=== PATIENT | female | born 1990 | race Caucasian/White ===

== ENCOUNTER 2020-10-17 00:14 | Inpatient (IN) | payer OTHER, SELFPAY ==
[2020-10-17 00:13] VITALS: BP 128/95; PULSE 76; RESP 17; TEMP 37.2; O2SAT 98
[2020-10-17 00:17] VITALS: BMI 23.3
[2020-10-17 06:00] VITALS: BP 117/80; PULSE 73; RESP 19; TEMP 36.6; O2SAT 96
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
[2020-10-17] MEDS: venlafaxine 75 mg Tablet 37.5 MG PO (10:26)
[2020-10-17] MEDS: nicotine 21 mg Patch 1 PATCH TRANSDERMA (10:26)
[2020-10-17 14:00] VITALS: BP 121/83; PULSE 101; RESP 17; TEMP 36.9; O2SAT 98
[2020-10-17 22:00] VITALS: RESP 17
--- NOTE | 2020-10-18 00:59 | PC.NURSE ---
pm ASSESSMENT PT IS DEPRESSED THIS EVENING, SHE IS SELF-ISOLATING, DENIES PAIN, DENIES AVH, DENIES SI/HI, COOPERATIVE WITH STAFF BUT STAYS TO HERSELF.
[2020-10-18 06:00] VITALS: BP 128/93; PULSE 85; RESP 18; TEMP 36.9; O2SAT 96
[2020-10-18] MEDS: venlafaxine 75 mg Tablet PO (08:40)
[2020-10-18] MEDS: nicotine 2 mg Gum BUCCAL ×2 (08:42→14:01)
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
[2020-10-18 14:00] VITALS: BP 123/85; PULSE 86; RESP 18; TEMP 36.8; O2SAT 96
[2020-10-18 20:00] VITALS: BP 125/85; PULSE 88; RESP 16; TEMP 36.7; O2SAT 98
[2020-10-18 22:00] VITALS: BP 125/85; PULSE 88; RESP 16; TEMP 36.7; O2SAT 98
[2020-10-19 06:00] VITALS: BP 111/76; PULSE 85; RESP 18; TEMP 36.9; O2SAT 98
[2020-10-19] MEDS: venlafaxine 75 mg Tablet PO (08:14)
[2020-10-19] MEDS: nicotine 2 mg Gum BUCCAL ×2 (09:03→13:43)
[2020-10-19 13:58] VITALS: BP 124/85; PULSE 90; RESP 20; TEMP 36.6; O2SAT 98
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
[2020-10-19 22:00] VITALS: BP 117/78; PULSE 76; RESP 16; TEMP 37; O2SAT 96
[2020-10-20 06:00] VITALS: BP 117/78; PULSE 76; RESP 16; TEMP 37; O2SAT 96
[2020-10-20 07:27] VITALS: BP 117/78; PULSE 76; RESP 16; TEMP 37; O2SAT 96
[2020-10-20] MEDS: venlafaxine ER (24HR) 75 mg Capsule PO (07:51)
[2020-10-20] MEDS: nicotine 2 mg Gum BUCCAL (07:53)
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
== END 2020-10-20 08:43 | disposition home or self-care (01) | DRG 885 ==
PROVIDERS: Admitting Provider Psychiatry & Neurology Child & Adolescent Psychiatry; PCP Family Medicine; Visit Provider Psychiatry & Neurology Child & Adolescent Psychiatry
DX: F33.2 Major depressive disorder, recurrent severe without psychotic features (principal); R45.851 Suicidal ideations; F10.139 Alcohol abuse with withdrawal, unspecified; F41.9 Anxiety disorder, unspecified; F17.210 Nicotine dependence, cigarettes, uncomplicated; F43.10 Post-traumatic stress disorder, unspecified; Z81.8 Family history of other mental and behavioral disorders